=== PATIENT | female | born 2000 | race Two or more races ===

== ENCOUNTER 2021-09-13 12:46 | Outpatient (CLI) | payer OTHER | END 2021-09-13 12:47 | disposition home or self-care (01) | LOC: LAB 12:46 | DX: R10.0 Acute abdomen (principal); K27.9 Peptic ulcer, site unspecified, unspecified as acute or chronic, without hemorrhage or perforation ==

== ENCOUNTER 2021-09-15 09:37 | Outpatient (CLI) | payer OTHER | END 2021-09-15 09:43 | disposition home or self-care (01) | LOC: SONOGRAMA 09:37 | DX: K29.00 Acute gastritis without bleeding (principal) ==

== ENCOUNTER 2021-09-15 11:05 | Outpatient (CLI) | payer OTHER | END 2021-09-15 11:06 | disposition home or self-care (01) | LOC: LAB 11:05 | DX: R10.9 Unspecified abdominal pain (principal); K57.90 Diverticulosis of intestine, part unspecified, without perforation or abscess without bleeding ==